=== PATIENT | male | born 1975 | race Caucasian/White ===

== ENCOUNTER 2021-06-11 08:23 | Inpatient (IN) | payer MEDICAID ==
[~2021-06-11] VITALS: Ht 165.1 cm; Wt 187.9 kg
[2021-06-27] VITALS (509 sets, daily range): BP systolic 61–158; BP diastolic 32–95; PULSE 63–83; TEMP 96.7–98.6; O2SAT 82–100
[2021-06-27 06:18] LABS: BASO # 0.1 K/mm3 (0.0-0.2); BASO % 0.5 % (0.0-2.0); EOS # 0.3 K/mm3 (0.0-0.7); EOS % 3.1 % (0.0-4.0); GRAN # 6.9 K/mm3 (1.4-6.5); HEMATOCRIT 41.7 % (42.0-52.0); HEMOGLOBIN 13.7 g/dl (13.5-18.0); LYMPH # 1.8 K/mm3 (1.2-3.4); LYMPH % 17.6 % (20.0-51.0); MEAN CELL VOLUME 87 fl (80.0-100.0); MEAN CORPUSCULAR HEMOGLOBIN 29 pg (27-31); MEAN CORPUSCULAR HGB CONC 33 g/dl (33.0-37.0); MEAN PLATELET VOLUME 10.7 fl (7.4-10.4); MONO # 1.3 K/mm3 (0.1-0.6); MONO % 12.4 % (1.7-9.3); PLATELET COUNT 239 K/mm3 (130-400); RED BLOOD COUNT 4.77 M/mm3 (4.20-5.60); REDCELL DISTRIBUTION WIDTH-CV 18.3 % (11.5-14.5)
[2021-06-27] MEDS ORDERED: K-DUR20 MEQ PO (06:25)
[2021-06-27] MEDS ORDERED: KLONOPIN 1MG1 MG PO ×2 (06:26)
[2021-06-27] MEDS ORDERED: IRON TABLETS325 MG PO (06:27)
[2021-06-27] MEDS ORDERED: LATUDA40 MG PO (06:27)
[2021-06-27] MEDS ORDERED: SEROQUEL XR300 MG PO (06:27)
[2021-06-27] MEDS ORDERED: TIMOLOL MALEATE5 M1 OD (06:28)
[2021-06-27] MEDS ORDERED: FLONASE NASAL S16 GM NS (06:28)
[2021-06-27] MEDS ORDERED: XALATAN EYE DROPS OD (06:29)
[2021-06-27] MEDS ORDERED: LASIX 40MG TABL40 MG PO (06:29)
[2021-06-27] MEDS ORDERED: PROTONIX 40MG T40 MG PO (06:29)
[2021-06-27] MEDS ORDERED: ZOCOR 40MG40 MG PO (06:30)
--- NOTE | 2021-06-27 06:35 | NUR ---
The patient ambulated back to [facility] independently using a steady gait and appeared to tolerate the activity well. Vital signs obtained. Consent signed. 18G IV started to left hand with one stick, LR infusing without difficulty. Heart Reg. Lungs clear. Bowel sound audible. Mother and sister at bedside. Call light is within reach. Warm blanket provided. Denies any further needs at this time.
[2021-06-27 06:41] LABS: ALBUMIN 3.8 gm/dL (3.5-5.0); BILIRUBIN,TOTAL 0.4 mg/dL (0.2-1.2); CALCIUM 8.7 mg/dL (8.4-10.2); CREATININE, serum 0.89 mg/dL (0.72-1.25); POTASSIUM 3.8 mmol/L (3.5-4.5); TOTAL PROTEIN 7.5 gm/dL (6.2-8.1)
--- NOTE | 2021-06-27 07:19 | NUR ---
The patient was taken back via cart to the operating room at this time. The patient's chart was sent with him and his belongings were taken over to the recovery room and will be transferred up to the 3rd floor with the patient post operatively.
--- NOTE | 2021-06-27 12:30 | NUR ---
PATIENT CAME FROM PACU ON 2 LITERS NC; ALL VITAL SIGNS ARE WITHIN NORMAL LIMITS AND PATIENT HAS NO COMPLAINTS OF PAIN AT THIS TIME. PATIENT RECEIVED FENTANYL IN THE PACU BEFORE COMING OVER; WILL ASSESS FOR PAIN ON AN ONGOING BASIS.
[2021-06-27] MEDS ORDERED: VITAMIN C500 MG PO (13:07)
[2021-06-28] VITALS (416 sets, daily range): BP systolic 97–142; BP diastolic 56–79; PULSE 78–92; TEMP 98.1–99.1; O2SAT 85–98
[2021-06-28 06:13] LABS: BASO % 0.1 % (0.0-2.0); GRAN # 11.5 K/mm3 (1.4-6.5); GRAN % 85.3 % (42.2-75.2); LYMPH # 0.8 K/mm3 (1.2-3.4); LYMPH % 5.5 % (20.0-51.0); MEAN CELL VOLUME 91 fl (80.0-100.0); MEAN CORPUSCULAR HGB CONC 31 g/dl (33.0-37.0); MEAN PLATELET VOLUME 10.7 fl (7.4-10.4); MONO # 1.2 K/mm3 (0.1-0.6); MONO % 8.7 % (1.7-9.3); PLATELET COUNT 236 K/mm3 (130-400); RED BLOOD COUNT 3.53 M/mm3 (4.20-5.60); REDCELL DISTRIBUTION WIDTH-CV 18.7 % (11.5-14.5)
--- NOTE | 2021-06-28 06:35 | NUR ---
PT RESTING IN BED, REPORTS NO PAIN THIS AM. TYLENOL GIVEN SCHEDULED, PT ENCOURAGED TO ASK FOR ADDITIONAL PAIN MEDICATIONS IF NEEDED TODAY PER PRN ORDERS. PT HAS HAD TWO WATERY STOOLS THIS PM SHIFT, TOLERATED CLEAR LIQUIDS WITHOUT INCIDENCE. MD AWARE OF DECREASED URINE OUTPUT, LASIX ON ORDER FOR THIS AM SHIFT. WILL CONTINUE TO MONITOR.
[2021-06-28 06:37] LABS: CALCIUM 8.1 mg/dL (8.4-10.2); CREATININE, serum 1.28 mg/dL (0.72-1.25); MAGNESIUM 1.8 mg/dL (1.6-2.6); PHOSPHOROUS 4.2 mg/dL (2.3-4.7); POTASSIUM 4.1 mmol/L (3.5-4.5)
[2021-06-28 06:41] LABS: HEMATOCRIT 32.2 % (42.0-52.0); HEMOGLOBIN 10.1 g/dl (13.5-18.0); MEAN CORPUSCULAR HEMOGLOBIN 29 pg (27-31)
--- NOTE | 2021-06-28 08:23 | NUR ---
Assessment completed, alert/oriented, vital signs stable, abd tender but report pain is overall mild and is controlled, 5x lap sites and 1x midline incision noted/ all close with Sx skin glue, no drainage or redness noted to surrounding tissue, abd is round and firm/ BS + throughout, he is tolerating PO intake of clear liquid diet, night nursing reported a couple liquid stools noted overnight, patient is still on 2L. of o2 and sat are WNL/ no resp.difficulty noted, lungs are CTA/ but distant lung sounds as patient is obese, patient has a carroll cath in place and it is patent/ marginal urine ouput overnight and night nurse notified physician/ Creat slightly elevated at 1.28 and will discuss POC with attending this mroing when he makes rounds, patient denies other needs at this time, will continue to monitor
--- NOTE | 2021-06-28 10:07 | NUR ---
hospitality workers met with patient to complete intake. Patient reports that he lives at home with his mother Irais ([phone]) in [place]. He reports to being independent with his ADL's and does not utilize any DME to assist with mobility. Patient has no home oxygen needs. PCP is Janes Lubin and he utilizes [facility] in [place] with no cost difficulty. Patient's legal next of kin established is his mother Irais. Collaborated with the patients RN. Patient is moving slow this morning but is planned to move to the floor later. PT/OT is ordered but they have not evaluated the patient yet.
--- NOTE | 2021-06-28 10:20 | NUR ---
Initial visit; Patient very ill, thanked Veterinary Assistant for coming in to visit him and wishing him God's blessings and good care that minimalizes his pain. Veterinary Assistant will keep Luis in her prayers.
--- NOTE | 2021-06-28 13:33 | NUR ---
Patient is transferring to Surgical floor room 349, I have called and given report to receiving nurse Jenifer, patients mother present at time of transfer/ I transferred him upstairs by wheelchair
--- NOTE | 2021-06-28 15:00 | NUR ---
Pt assisted to bed from wheelchair. Pt is alert and oriented, pleasent with no complaints. Oriented pt to his room. Pts mother is present in the room. Pt having minimal complaints of pain, reports that it is tolerable. SCDs on bilaterally. INT to left hand as pt is tolerating fluids with no complaints of N/V
--- NOTE | 2021-06-28 19:16 | NUR ---
PT REPORTS PAIN TO ABD 6/10 WHILE DOING SHIFT REPORT. MEDICATED WITH OXYCODONE 5MG PO AT THIS TIME. ABD DISTENDED, FIRM. AUDIBLE BOWEL SOUNDS NOTED. HAS LAP SITES X5 AND 1 SMALL MIDLINE INCISION ALL GLUED AND DRY. WOODRUFF TO BSD WITH YELLOW URINE.
--- NOTE | 2021-06-28 20:30 | NUR ---
PT TAKES HS MEDS. STANDBY ASSIST TO BATHROOM, HAS SMALL LIQUID STOOL AND BACK TO BED. HAS INT TO LEFT HAND, FLUSHES WELL.
[2021-06-29] VITALS (7 sets, daily range): BP systolic 11–122; BP diastolic 50–69; PULSE 76–88; TEMP 98–98.5
[2021-06-29 06:00] LABS: MEAN CELL VOLUME 92 fl (80.0-100.0); MEAN CORPUSCULAR HGB CONC 32 g/dl (33.0-37.0); MEAN PLATELET VOLUME 11.7 fl (7.4-10.4); PLATELET COUNT 234 K/mm3 (130-400); RED BLOOD COUNT 3.15 M/mm3 (4.20-5.60); REDCELL DISTRIBUTION WIDTH-CV 19.4 % (11.5-14.5)
[2021-06-29 06:10] LABS: HEMATOCRIT 28.9 % (42.0-52.0); HEMOGLOBIN 9.1 g/dl (13.5-18.0); MEAN CORPUSCULAR HEMOGLOBIN 29 pg (27-31)
[2021-06-29 06:28] LABS: ALBUMIN 3.1 gm/dL (3.5-5.0); BILIRUBIN,TOTAL 0.3 mg/dL (0.2-1.2); CREATININE, serum 1.41 mg/dL (0.72-1.25); POTASSIUM 3.9 mmol/L (3.5-4.5); TOTAL PROTEIN 6.1 gm/dL (6.2-8.1)
[2021-06-29 06:36] LABS: ANISOCYTOSIS 1+; LYMPHOCYTE 18 % (20.0-51.0); NEUTROPHILS 69 % (42.0-75.2); PLATELET ESTIMATE NORMAL (NORMAL)
--- NOTE | 2021-06-29 06:36 | NUR ---
medicated with AM scheduled meds including Oxycodone 5mg po for pain 07/03 to abd.
[2021-06-29 06:37] LABS: HYPOCHROMIA 2+
--- NOTE | 2021-06-29 09:21 | NUR ---
Follow-up visit; Patient thanked Communications Coordinator for looking in on him and offering prayer and strength through Richard.
--- NOTE | 2021-06-29 10:24 | NUR ---
Patient sitting up in chair. Alert & oriented. He is working on his full liquid tray. denies passing flatus. Bowel slightly active. Incision sites edges well approximated. Int. Will monitor.
[2021-06-29] MEDS ORDERED: ROXICODONE 55 MG/TAB PO (15:29)
[2021-06-29] MEDS ORDERED: TYLENOL 500MG500 MG PO (15:29)
--- NOTE | 2021-06-29 18:04 | NUR ---
Patient resting in bed. Dr. Anders rounded this afternoon, plan of care reviewed. Patient tolerated his full liquid dinner. Did report increased pain & wanting pain medication, one tab roxicodone, per orders. Will report off to night nurse
--- NOTE | 2021-06-29 22:13 | NUR ---
PT IN BED, IS ALERT AND ORIENTED X4. HAS OXYGEN ON AT 2L/NC. INT TO LEFT HAND, FLUSHES WELL. TAKES HS MEDS INCLUDING OXYCODONE 5MG PO FOR ABD PAIN. ROBOTIC SITES X5 TO ABD DRY AND GLUED. SMALL MIDLINE ALSO DRY AND GLUED. HAVING LOOSE STOOLS. WOODRUFF TO BSD WITH YELLOW URINE, TO BE DC'D 5/7 AM.
[2021-06-30 03:09] VITALS: BP 115/72; PULSE 84; TEMP 97.6
[2021-06-30 06:11] LABS: BASO % 0.5 % (0.0-2.0); EOS # 0.3 K/mm3 (0.0-0.7); EOS % 3.7 % (0.0-4.0); GRAN % 59.4 % (42.2-75.2); LYMPH # 1.8 K/mm3 (1.2-3.4); LYMPH % 21.7 % (20.0-51.0); MEAN CELL VOLUME 95 fl (80.0-100.0); MEAN CORPUSCULAR HGB CONC 30 g/dl (33.0-37.0); MEAN PLATELET VOLUME 11.2 fl (7.4-10.4); MONO # 1.2 K/mm3 (0.1-0.6); MONO % 14.5 % (1.7-9.3); PLATELET COUNT 202 K/mm3 (130-400); RED BLOOD COUNT 2.97 M/mm3 (4.20-5.60); REDCELL DISTRIBUTION WIDTH-CV 18.6 % (11.5-14.5)
[2021-06-30 06:12] LABS: HEMATOCRIT 28.3 % (42.0-52.0); HEMOGLOBIN 8.6 g/dl (13.5-18.0); MEAN CORPUSCULAR HEMOGLOBIN 29 pg (27-31)
--- NOTE | 2021-06-30 06:16 | NUR ---
WOODRUFF CATHETER DC'D AFTER BALLOON DEFLATED. EMPTIED 250CC URINE AT THIS TIME.
[2021-06-30 06:22] LABS: BILIRUBIN,TOTAL 0.3 mg/dL (0.2-1.2); CALCIUM 8.1 mg/dL (8.4-10.2); CREATININE, serum 0.92 mg/dL (0.72-1.25); POTASSIUM 3.9 mmol/L (3.5-4.5); TOTAL PROTEIN 6.1 gm/dL (6.2-8.1)
[2021-06-30 08:00] VITALS: BP 114/56; PULSE 78; TEMP 98.6
--- NOTE | 2021-06-30 10:18 | NUR ---
Patient resting in bed. Chair was offered, no interest. Patient ambulated the halls with therapy & did well. Dyspnea on exertion. Patient was up to the bathroom & voided without troubles. no stool. Abdomen obese, but soft, bowels active. incisions site edges well approximated. rounded, plan of care reviewed.
[2021-06-30 12:00] VITALS: BP 133/65; PULSE 79; TEMP 98.6
--- NOTE | 2021-06-30 12:30 | NUR ---
Patient sitting up in bed. denies needs. lunch ordered.
--- NOTE | 2021-06-30 12:47 | NUR ---
Business Planner offered prayer and support with patient.
--- NOTE | 2021-06-30 15:27 | NUR ---
Patient has been having loose liquid stool today. Executive Producer [employer] has assisted with pericares. Patient resting in bed & deneis needs.
[2021-06-30 15:56] VITALS: BP 128/63; PULSE 81; TEMP 98.6
--- NOTE | 2021-06-30 17:10 | NUR ---
Patient right lower quadrant site oozing blood. notifed, orders obtained. Made him aware of brusing seen. Gauze & tegaderm dressing applied. Will closely monitor.
--- NOTE | 2021-06-30 17:51 | NUR ---
Beth reports increased pain 6/10 to tailbone, offered to get him out of bed to chair or repositioned in bed. He did not want to move, he was concerned about bleeding at RLQ lap site. RLQ gauze dressing remains intact. Clean & dry. Dinner ordered. No other needs, will monitor.
[2021-06-30 19:20] VITALS: BP 126/65; PULSE 82; TEMP 98.8
[2021-06-30 23:17] VITALS: BP 125/63; PULSE 80; TEMP 98.4
[2021-07-01 03:49] VITALS: BP 124/68; PULSE 79; TEMP 98.3
--- NOTE | 2021-07-01 05:23 | NUR ---
ASSUMED CARE OF PATIENT AFTER RECEIVING BEDSIDE REPORT. ASSESSMENT COMPLETED, VSS. PATIENT UP TO BATHROOM WITHOUT ASSISTANCE. NO QUESITONS OR CONERNS AT THIS TIME. PAIN WELL CONTROLLED. NO ACUTE EVENTS OVERNIGHT.
[2021-07-01 05:47] LABS: INR 1.2 (0.8-3.0); PROTHROMBIN TIME 13.6 SECONDS (9.7-12.8)
[2021-07-01 05:54] LABS: BASO # 0.1 K/mm3 (0.0-0.2); BASO % 0.6 % (0.0-2.0); EOS # 0.4 K/mm3 (0.0-0.7); EOS % 4.5 % (0.0-4.0); GRAN # 4.6 K/mm3 (1.4-6.5); GRAN % 58.2 % (42.2-75.2); LYMPH # 1.8 K/mm3 (1.2-3.4); LYMPH % 22.3 % (20.0-51.0); MEAN CELL VOLUME 93 fl (80.0-100.0); MEAN CORPUSCULAR HGB CONC 31 g/dl (33.0-37.0); MEAN PLATELET VOLUME 11.1 fl (7.4-10.4); MONO # 1.1 K/mm3 (0.1-0.6); MONO % 13.9 % (1.7-9.3); PLATELET COUNT 213 K/mm3 (130-400); RED BLOOD COUNT 2.98 M/mm3 (4.20-5.60); REDCELL DISTRIBUTION WIDTH-CV 18.4 % (11.5-14.5)
[2021-07-01 05:57] LABS: HEMATOCRIT 27.8 % (42.0-52.0); HEMOGLOBIN 8.6 g/dl (13.5-18.0); MEAN CORPUSCULAR HEMOGLOBIN 29 pg (27-31)
[2021-07-01 07:58] VITALS: BP 131/65; PULSE 76; TEMP 98.4
--- NOTE | 2021-07-01 09:32 | NUR ---
PATIENT ALERT AND ORIENTED X4. SBA TO BATHROOM. IV TO LEFT FOREARM. NO NEW CONCERNS. LAP SITES TO ABDOMEN WITH NO DRAINAGE.
[2021-07-01 11:36] VITALS: BP 127/62; PULSE 88; TEMP 98
[2021-07-01 15:52] VITALS: BP 122/66; PULSE 82; TEMP 98.5
--- NOTE | 2021-07-01 18:22 | NUR ---
PATIENT RIGHT LOWER QUADRANT SITE OOZING MORE BLOOD THIS AFTERNOON. DRESSING WAS REINFORCED WITH GAUZE AND TEGADERM. DR CLEVELAND NOTIFIED, WAITING TO HEAR BACK.
[2021-07-01 19:42] VITALS: BP 142/70; PULSE 85; TEMP 99
--- NOTE | 2021-07-01 20:29 | NUR ---
PT IN BED, DRSG TO RLQ INCISION REMOVED, SITE NOT OOZING, PLACED FOLDED GAUZE AND ABD WITH FOAM TAPE HOLDING. PT HAS INT TO LEFT HAND, FLUSHED OK. TAKES HS MEDS INCLUDING OXYCODONE 5MG PO FOR ABD PAIN 5/10. PT REPORTS LOOSE STOOLS AND VOIDING OK.
[2021-07-01 23:53] VITALS: BP 140/75; PULSE 92; TEMP 98.5
[2021-07-02 03:52] VITALS: BP 137/78; PULSE 91; TEMP 98.9
--- NOTE | 2021-07-02 06:45 | NUR ---
PT TAKES SCHEDULED AM MEDS WITHOUT PROBLEM. NO LOOSE STOOLS THIS SHIFT.
[2021-07-02 07:08] LABS: HEMATOCRIT 28.9 % (42.0-52.0); HEMOGLOBIN 9.2 g/dl (13.5-18.0)
[2021-07-02 07:20] VITALS: BP 159/79; PULSE 92; TEMP 100.2
--- NOTE | 2021-07-02 07:31 | NUR ---
Patietn running a low grade temp this am . Dr Anders made aware & labs ordered.
[2021-07-02 08:05] LABS: ALBUMIN 3.2 gm/dL (3.5-5.0); BILIRUBIN,TOTAL 0.8 mg/dL (0.2-1.2); CALCIUM 8.4 mg/dL (8.4-10.2); CREATININE, serum 0.87 mg/dL (0.72-1.25); POTASSIUM 3.8 mmol/L (3.5-4.5); TOTAL PROTEIN 6.7 gm/dL (6.2-8.1)
[2021-07-02 08:09] LABS: BASO % 0.3 % (0.0-2.0); EOS # 0.4 K/mm3 (0.0-0.7); GRAN # 8.6 K/mm3 (1.4-6.5); GRAN % 72.9 % (42.2-75.2); LYMPH # 1.4 K/mm3 (1.2-3.4); MEAN CELL VOLUME 91 fl (80.0-100.0); MEAN CORPUSCULAR HEMOGLOBIN 29 pg (27-31); MEAN CORPUSCULAR HGB CONC 32 g/dl (33.0-37.0); MEAN PLATELET VOLUME 11.8 fl (7.4-10.4); MONO # 1.3 K/mm3 (0.1-0.6); PLATELET COUNT 266 K/mm3 (130-400); RED BLOOD COUNT 3.21 M/mm3 (4.20-5.60); REDCELL DISTRIBUTION WIDTH-CV 18.5 % (11.5-14.5)
--- NOTE | 2021-07-02 09:37 | NUR ---
Follow-up visit; Patient thanked Manager Cardiac Cath for checking on him and offering a "Good morning" greeting. Patient appears to feel better at this time.
--- NOTE | 2021-07-02 09:45 | NUR ---
Patient resting in bed. He was up to chair this am for breakfast. Tolerated low fiber without nausea. He reports cramping abdominal pain 5/10. Abdomen obese, soft & hyperactive bowels. He reports continued loose stools, colace held. RLQ lap site pressure dressing intact. Int. Will monitor.
[2021-07-02 11:47] VITALS: BP 151/70; PULSE 107; TEMP 99
--- NOTE | 2021-07-02 14:17 | NUR ---
CROSS TIE TRAM LOADER MADE AWARE OF ORDERS. ROUNDED. PLAN OF CARE REVIEWED.
--- NOTE | 2021-07-02 14:52 | NUR ---
New dressing to RLQ. Tegaderm & gauze applied. brusing noted.
--- NOTE | 2021-07-02 15:33 | NUR ---
CT SCAN REPORTS READ TO . PLAN OF CARE REVIEWED
[2021-07-02 15:44] VITALS: BP 150/82; PULSE 89; TEMP 99.6
--- NOTE | 2021-07-02 16:39 | NUR ---
voicemail left for made him aware of continues low grade temp.
--- NOTE | 2021-07-02 19:17 | NUR ---
Patient sitting up in chair for dinner. He did well. AUgmentin started per orders from . REport to deanna
--- NOTE | 2021-07-02 19:30 | NUR ---
PT SITTING IN RECLINER AT BEDSIDE. RT LOWER ROBOTIC SITE WITH GAUZE, NO DRAINAGE AT THIS TIME. HAS DIFFUSE BRUISING TO ABD ROBOTIC SITES.
[2021-07-02 20:08] VITALS: BP 153/80; PULSE 90; TEMP 99.7
--- NOTE | 2021-07-02 21:58 | NUR ---
ASSESSMENT COMPLETE. PT. LYING IN BED. A&O. NO COMPLAINTS OF PAIN. PT. WAS ASSISSTED TO RISE FROM BED, BUT WALKED INDEPENDTLY TO BATHROOM. CALL LIGHT IN REACH. NO FURTHER NEEDS AT THIS TIME.
[2021-07-03 00:20] VITALS: BP 151/85; PULSE 94; TEMP 99.7
[2021-07-03 04:26] VITALS: BP 146/70; PULSE 97; TEMP 100.3
[2021-07-03 06:57] LABS: MEAN CELL VOLUME 93 fl (80.0-100.0); MEAN CORPUSCULAR HGB CONC 31 g/dl (33.0-37.0); MEAN PLATELET VOLUME 11.5 fl (7.4-10.4); PLATELET COUNT 281 K/mm3 (130-400); RED BLOOD COUNT 3.21 M/mm3 (4.20-5.60); REDCELL DISTRIBUTION WIDTH-CV 18.6 % (11.5-14.5)
[2021-07-03 07:02] LABS: HEMATOCRIT 29.9 % (42.0-52.0); HEMOGLOBIN 9.3 g/dl (13.5-18.0); MEAN CORPUSCULAR HEMOGLOBIN 29 pg (27-31)
[2021-07-03 07:14] LABS: ALBUMIN 3.2 gm/dL (3.5-5.0); BILIRUBIN,TOTAL 1.1 mg/dL (0.2-1.2); CALCIUM 8.6 mg/dL (8.4-10.2); CREATININE, serum 0.83 mg/dL (0.72-1.25); POTASSIUM 3.7 mmol/L (3.5-4.5); TOTAL PROTEIN 7.2 gm/dL (6.2-8.1)
[2021-07-03 07:16] VITALS: BP 159/86; PULSE 94; TEMP 98.7
[2021-07-03 08:21] LABS: BAND 3 % (0-10); EOSINOPHIL 2 % (0-4); NEUTROPHILS 63 % (42.0-75.2); PLATELET ESTIMATE NORMAL (NORMAL)
[2021-07-03 08:22] LABS: LYMPHOCYTE 16 % (20.0-51.0)
[2021-07-03 08:23] LABS: ANISOCYTOSIS 2+; HYPOCHROMIA 2+
[2021-07-03 11:21] VITALS: BP 137/62; PULSE 90; TEMP 98.6
--- NOTE | 2021-07-03 12:00 | NUR ---
PT RESTING QUIETLY IN BED WITH EYES CLOSED. PT REPORTS HAVING MULTIPLE LOOSE STOOLS THIS MORNING. SBA USED WHEN AMBULATING IN ROOM ET HALLWAY. PT'S AFFECT IS FLAT BUT IS COOPERATIVE WITH QUESTIONS ET CARES. ABDOMINAL INCISIONS WELL APPROXIMATED. PT DENIES NEEDS. CALL LIGHT WITHIN REACH.
--- NOTE | 2021-07-03 14:24 | NUR ---
Patient seen up walking with pt. Patient has been ambulating without assistance. Patient should have no needs at the time of discharge.
--- NOTE | 2021-07-03 16:36 | NUR ---
DISCHARGE INFORMATION GIVEN; PATIENT STATES UNDERSTANDING OF MEDICATIONS AND OF THEIR SIDE EFFECTS. PT UNDERSTANDS EDUCATION GIVEN AND STATES HE HAS NO OTHER QUESTIONS.
--- NOTE | 2021-07-03 18:20 | NUR ---
PT DISCHARGED TO HOME WITH FAMILY. PERIPHERAL IV WAS DCED. PT DRESSED SELF IN HIS OWN CLOTHES FROM HOME. PT'S FAMILY STATES THAT THEY WERE UNABLE TO CLINICAL VETERINARIAN PT'S NEW PRESCRIPTIONS FROM THEIR PHARMACY IN [place]. PT'S MEDICATIONS WERE ELECTRONICALLY SENT ET RECEIVED. PT IS GIVEN DOSE OF ROXICODONE BEFORE DISCHARGE. PT'S FAMILY STATES THEY WILL CHECK WITH THEIR PHARMACY AGAIN IN THE MORNING TO TRY TO OBTAIN PAIN MEDS.
[2021-07-03] MEDS ORDERED: AMOXICILLIN 8751 TAB PO (18:26)
== END 2021-07-03 16:20 | disposition home or self-care (01) | DRG 330 ==
LOC: ICU 06-27 05:34 → INPTSU 06-27 05:34 → SURG 06-27 07:30 → ICU 06-27 12:42 → SURG 06-28 13:53
PROVIDERS: Surgery; Urology; ADMIT Surgery
PROC: 0TJB8ZZ Inspection of Bladder, Via Natural or Artificial Opening Endoscopic (ICD-10-PCS; 2021-06-27)
PROC: 4A1BXSH Monitoring of Gastrointestinal Vascular Perfusion using Indocyanine Green Dye, External Approach (ICD-10-PCS; 2021-06-27)
PROC: 0DTN4ZZ Resection of Sigmoid Colon, Percutaneous Endoscopic Approach (ICD-10-PCS; principal; 2021-06-27 07:30)
PROC: 8E0W4CZ Robotic Assisted Procedure of Trunk Region, Percutaneous Endoscopic Approach (ICD-10-PCS; 2021-06-27 07:30)
DX: C18.7 Malignant neoplasm of sigmoid colon (principal); Z68.43 Body mass index [BMI] 50.0-59.9, adult; N17.9 Acute kidney failure, unspecified; K91.89 Other postprocedural complications and disorders of digestive system; K56.7 Ileus, unspecified; K91.870 Postprocedural hematoma of a digestive system organ or structure following a digestive system procedure; D64.9 Anemia, unspecified; K21.9 Gastro-esophageal reflux disease without esophagitis; E78.00 Pure hypercholesterolemia, unspecified; F20.9 Schizophrenia, unspecified; E66.01 Morbid (severe) obesity due to excess calories; I10 Essential (primary) hypertension; F17.220 Nicotine dependence, chewing tobacco, uncomplicated; F41.9 Anxiety disorder, unspecified; Y83.8 Other surgical procedures as the cause of abnormal reaction of the patient, or of later complication, without mention of misadventure at the time of the procedure
CPT/HCPCS: A4314; A9284; J0330; J0690; J1100; J1650; J1885; J2405; J2704; J3010; J7040; J7120

== ENCOUNTER 2021-08-24 11:32 | Day surgery (SDC) | payer MEDICAID ==
[~2021-08-24] VITALS: Ht 165.1 cm; Wt 154.2 kg
[~2021-08-24 11:32] MED LIST: AMOXICILLIN 8751 TAB PO; FLONASE NASAL S16 GM NS; IRON TABLETS325 MG PO; K-DUR20 MEQ PO; KLONOPIN 1MG1 MG PO; LASIX 40MG TABL40 MG PO; LATUDA40 MG PO; PROTONIX 40MG T40 MG PO; ROXICODONE 55 MG/TAB PO; SEROQUEL XR300 MG PO; TIMOLOL MALEATE5 M1 OD; TYLENOL 500MG500 MG PO; VITAMIN C500 MG PO; XALATAN EYE DROPS OD; ZOCOR 40MG40 MG PO
[2021-08-24 13:08] LABS: BASO % 0.3 % (0.0-2.0); EOS # 0.3 K/mm3 (0.0-0.7); EOS % 3.2 % (0.0-4.0); GRAN # 7.7 K/mm3 (1.4-6.5); GRAN % 74.4 % (42.2-75.2); HEMATOCRIT 38.4 % (42.0-52.0); HEMOGLOBIN 12.7 g/dl (13.5-18.0); LYMPH # 1.3 K/mm3 (1.2-3.4); MEAN CELL VOLUME 89 fl (80.0-100.0); MEAN CORPUSCULAR HEMOGLOBIN 30 pg (27-31); MEAN CORPUSCULAR HGB CONC 33 g/dl (33.0-37.0); MEAN PLATELET VOLUME 10.5 fl (7.4-10.4); MONO # 0.9 K/mm3 (0.1-0.6); MONO % 8.7 % (1.7-9.3); PLATELET COUNT 249 K/mm3 (130-400); REDCELL DISTRIBUTION WIDTH-CV 14.2 % (11.5-14.5)
[2021-08-24 13:25] LABS: CREATININE, serum 0.73 mg/dL (0.72-1.25); POTASSIUM 4.1 mmol/L (3.5-4.5)
[2021-08-24 14:31] VITALS: BP 150/76; PULSE 71; TEMP 98.3
[2021-08-24 15:35] VITALS: BP 125/63; PULSE 72; TEMP 97.8
[2021-08-24 15:50] VITALS: BP 125/67; PULSE 72
[2021-08-24 16:10] VITALS: BP 150/76; PULSE 68
--- NOTE | 2021-08-24 16:53 | NUR ---
AWAKE, ALERT. MOTHER IN ROOM PATIENT DENIES PAIN. RESP NON LABORED. INCISIONS X 2 RIGHT SIDE UPPER CHEST WITHOUT DRAINAGE. NO DRESSING.
--- NOTE | 2021-08-24 16:59 | NUR ---
1545 AMBULATES TO BATHROOM WITH STANDBY ASSIST. VOIDS. TOLERATES ACTIVITY WITHOUT DYSPNEA.
--- NOTE | 2021-08-24 17:00 | NUR ---
4498 DISCHARGE INSTRUCTIONS REVIEWED WITH PATIENT AND MOTHER. COPY PROVIDED. EDUCATIONAL MATERIAL SPECIFIC TO PROCEDURE PROVIDED
== END 2021-08-24 16:40 | disposition home or self-care (01) ==
LOC: SDCO 11:32
PROVIDERS: Surgery
DX: C18.9 Malignant neoplasm of colon, unspecified (principal); F17.210 Nicotine dependence, cigarettes, uncomplicated
CPT/HCPCS: C1788; J0330; J1644; J2704; J7120